=== PATIENT | female | born 1960 | race Two or more races ===

== ENCOUNTER → 2018-05-07 | Day surgery (SDC) | payer BC, OTHER ==
--- NOTE | 2018-05-10 15:23 | PATH ---
Surgical Pathology Report Patient Name: DARCY HUNTLEY [facility]. Rec. #: [id number] /Age/Gender: 1960 (Age: 57) / F Account: [id number] Location: [facility] Taken: 05/07/2018 Received: 05/07/2018 Reported: 05/10/2018 Physicians: Rebecca Red M.D. Specimen(s) Received LEFT BREAST 8:00 13 CM FN CORE BIOPSY Clinical History Ultrasound findings: Suspicious Final Diagnosis BREAST, LEFT, 8:00, 13 FN, CORE BIOPSY: BENIGN BREAST TISSUE SHOWING FIBROADENOMA. Electronically Signed Josselin Bejarano M.D. Gross Description Received in formalin, indicated on the requisition to be left breast 8:00 13 FN, is a 1.8 x 1.7 x 0.3 cm aggregate of multiple dickerson-yellow, irregular to cylindrical portions of fibroadipose tissue admixed with blood clot. The formalin is filtered and the specimen is entirely submitted in one cassette. Time to formalin fixation: 2 minutes Total formalin fixation time: Approximately 6 hours. /05/07/2018 [place]/05/07/2018
== END | disposition home or self-care (01) ==
LOC: FRADUS-SUR 11:25
PROVIDERS: ATTEND Surgery Surgical Oncology
PROC: 0HBU3ZX Excision of Left Breast, Percutaneous Approach, Diagnostic (ICD-10-PCS; principal; 2018-05-07)
DX: D24.2 Benign neoplasm of left breast (principal); N63.24 Unspecified lump in the left breast, lower inner quadrant
CPT/HCPCS: 19083; 77065-TC; 87899; 88305-TC; A4648

== ENCOUNTER 2018-06-15 15:38 | Day surgery (SDC) | payer BC ==
[2018-06-08 11:30] VITALS: BMI 34.7
[~2018-06-15 15:38] MED LIST: ACETAMINOPHEN INJECTION 100 ML IVPB ONE; DESFLURANE GAS 240 ML BOTTLE IH ONE; DEXAMETHASONE SOD PHOSPHATE 4 MG/1 ML VIAL ONE; MIDAZOLAM HCL 2 MG/2 ML SINGLE DOSE VIAL ONE; MORPHINE SULFATE 2 MG/ML VIAL IVPUSH PRN; NEOSTIGMINE METHYLSULFATE 0.5 MG/ML - 10 ML MDV ONE; ONDANSETRON 4 MG/2 ML VIAL IVPB PRN; ONDANSETRON 4 MG/2 ML VIAL IVPUSH PRN; ONDANSETRON 4 MG/2 ML VIAL ONE; PROPOFOL 20 ML ONE; ROCURONIUM BROMIDE 50 MG/5 ML VIAL ONE; ceFAZolin SODIUM 1 GM VIAL ONE; oxyCODONE HCL 5 MG TABLET PO PRN
--- NOTE | 2018-06-15 15:39 | SURG ---
Surgery Painter Maintenance Note Painter Maintenance: Evin Mason PA-C Date of Service: 06/15/18 Diagnosis: symptomatic macromastia Procedure: Bilateral breast reduction I was present for the entirety of the operative procedure. For further detail, please refer to operative report.
--- NOTE | 2018-06-15 15:43 | OP ---
Operative Note - Note: Operative Date: 06/15/18 Pre-Operative Diagnosis: bilateral symptomatic macromastia Operation: bilateral breast reduction Findings: above Post-Operative Diagnosis: Same as Pre-op Surgeon: Shawn Ramsey Anesthesia: General Operative Report Dictated: Yes
[2018-06-15] MEDS ORDERED: LACTATED RINGERS SOLUTION 1,000 ML IV SCH ×2 (15:45)
[2018-06-15] MEDS ORDERED: ONDANSETRON 4 MG/2 ML VIAL IVPUSH ONE (15:45)
--- NOTE | 2018-06-15 16:43 | OP ---
DATE OF OPERATION: 06/15/2018 TITLE OF PROCEDURE: Bilateral reduction mammoplasty. PREOPERATIVE DIAGNOSIS: Bilateral symptomatic micromastia. POSTOPERATIVE DIAGNOSIS: Bilateral symptomatic micromastia. ATTENDING SURGEON: Shawn Ramsey MD INTERIOR PAINTER: Evin Mason PA-C The patient was marked in the holding area, nipples sited at 24 cm from the sternal notch bilaterally. Modified inferior pedicle Lopez pattern technique is planned. Patient is awake and aware of all incisions and resulting scars, brought to the operating room. Sequential compression stockings and HUMZA hose were applied. She is placed in the supine position. Position is carefully checked by surgical and anesthesia team. All pressure points are carefully padded and secured. Patient is then prepped and draped in standard surgical fashion. Herrmann catheter was placed. A timeout is called. Patient, procedure, site, and side were verified. When the markings were verified, the nipples were traced with a 42-mm cookie cutter pattern. Bilateral 10 cm width inferior pedicles were marked. With breast under tourniquet, the inferior pedicles were de-epithelialized with the exception of the nipple-areolar complex. Attention was then directed toward the right breast where skin flaps were elevated superiorly, medially, and laterally down to the level of the chest wall. The pedicle was then separately developed on its base connected to all its perforators along the pectoralis major muscle. This dissection is performed with a plasma blade dissection. Hemostasis was meticulously achieved. The skin was then tailor tacked in position. Attention was directed toward the contralateral side. The resection weight on the right side was exactly 989 g. Sutured specimen was specifically oriented with the suture at 12 o'clock. The mirror imaged procedure was performed on the left side. The resection weight on the left side is 953 g. With the skin tailor tacked on both sides, patient was brought to a seated upright position. Excellent asymmetry of size and shape and position are observed. Hemostasis was meticulously achieved. Both wounds were copiously irrigated with normal saline. A size 10 flat ISAAC drains were brought out the lateral extent of the incisions. Closure was then performed with first a medial tacking suture to the pedicle to the pectoralis fascia supporting the pedicle in a medial position. At this point, drains were secured with 2-0 silk drain sutures. The inverted T-point is secured with half-buried mattress 2-0 nylon suture. Vertical and horizontal limbs are closed with a series of interrupted buried deep dermal 3-0 Monocryl followed by a running subcuticular 3-0 Monocryl suture. The nipple-areola is inset with a series of interrupted buried deep dermal 3-0 Monocryl suture followed by a running subcuticular 4-0 Monocryl suture. All tissue was pink and viable at the end of the procedure. The patient is dressed with Steri-Strips, ABD gauze, and compressive surgical bra. Patient awoken from anesthesia and transferred to recovery without complication. Rebecca [id number]
[2018-06-15] MEDS ORDERED: CEFAZOLIN 1 GM in DEXTROSE 5%-WATER - 50 ML IVPB SCH (21:00)
[2018-06-15] MEDS ORDERED: CEFAZOLIN 1 GM/D5W 50 ML IVPB SCH (21:00)
[2018-06-15] MEDS: oxyCODONE HCL 5 MG TABLET PO PRN (22:27)
[2018-06-15] MEDS: CEFAZOLIN 1 GM/D5W 1 GM/50 ML BAG IVPB SCH (22:27)
[2018-06-16] MEDS: CEFAZOLIN 1 GM/D5W 1 GM/50 ML BAG IVPB SCH ×2 (04:03→09:57)
[2018-06-16 07:06] VITALS: BP 127/57; PULSE 72; TEMP 98.3
--- NOTE | 2018-06-16 07:24 | PN ---
Progress Note (short form) - Note Progress Note: POD 1 s/p reduction VSSAF All tissues viable, no collections. Right ISAAC was clogged and now fixed OK for discharge home.
[2018-06-16] MEDS: oxyCODONE HCL 5 MG TABLET PO PRN (09:57)
[2018-06-16] MEDS ORDERED: AMLODIPINE PO SCH (10:00)
[2018-06-16] MEDS ORDERED: ATORVASTATIN CA 20 MG TABLET (FP) PO SCH (10:00)
[2018-06-16] MEDS ORDERED: amLODIPine BESYLATE 2.5 MG TABLET (FP) PO SCH (10:00)
[2018-06-16] MEDS ORDERED: [UNRECOGNIZED DRUG - OTHER] PO SCH (10:00)
[2018-06-16] MEDS ORDERED: ATORVASTATIN PO SCH (10:00)
--- NOTE | 2018-06-17 17:39 | PATH ---
Surgical Pathology Report Patient Name: DARCY HUNTLEY [facility]. Rec. #: [id number] /Age/Gender: 1960 (Age: 57) / F Account: [id number] Location: [facility] Taken: 06/15/2018 Received: 06/15/2018 Reported: 06/17/2018 Physicians: Shawn Ramsey Specimen(s) Received A: RIGHT BREAST TISSUE, SUTURE AT SUPERIOR APEX B: RIGHT BREAST TISSUE, SUTURE AT 12 O'CLOCK C: RIGHT BREAST TISSUE, SUTURE AT 10 O'CLOCK D: LEFT BREAST TISSUE, SUTURE AT SUPERIOR APEX E: LEFT BREAST TISSUE, SUTURE AT 12 O'CLOCK Clinical History Symptomatic macromastia Final Diagnosis A. RIGHT BREAST TISSUE, EXCISION: BENIGN BREAST TISSUE. SKIN WITH NO PATHOLOGIC FINDINGS. B. RIGHT BREAST TISSUE, EXCISION: BENIGN BREAST TISSUE SHOWING FIBROCYSTIC AND FIBROADENOMATOID CHANGE. C. RIGHT BREAST TISSUE, EXCISION: BENIGN BREAST TISSUE. D. LEFT BREAST TISSUE,EXCISION: BENIGN BREAST TISSUE SHOWING FIBROADENOMATOID CHANGE AND PRIOR BIOPSY SITE CHANGES. E. LEFT BREAST TISSUE, EXCISION: BENIGN BREAST TISSUE SHOWING FIBROCYSTIC CHANGE. Electronically Signed Josselin Bejarano M.D. Gross Description One One A. Received in formalin labeled "right breast tissue," is an 891 g, 33.0 x 15.0 x 4.0 cm portion of fibroadipose tissue a suture marking the superior apex, per the surgeon. The anterior surface displays a 33.0 x 7.0 cm brown, irregular, unremarkable portion of skin. The anterior soft tissue is inked blue and the deep margin is inked black. Sectioning reveals foci of white fibrous tissue. Home Administrator sections are submitted in 3 cassettes. B. Received in formalin labeled "right breast tissue," is a 40 g, 8.8 x 5.8 x 2.0 cm portion of fibroadipose tissue. There is no suture present, despite the indication on the requisition. There is no skin present. Sectioning reveals multiple foci of white fibrous tissue. Home Administrator sections are submitted in 4 cassettes. C. Received in formalin labeled "right breast tissue," is a 10 g, 6.5 x 3.0 x 1.3 cm aggregate of multiple unoriented portions of fibroadipose tissue. There is no suture present, despite the indication on the requisition. There is no skin present. Sectioning reveals foci of white fibrous tissue. Home Administrator sections are submitted in one cassette. D. Received in formalin labeled "left breast tissue," is an 810 g, 37.0 x 11.5 x 3.5 cm portion of fibroadipose tissue with a suture marking the superior apex, per the surgeon. The anterior surface displays a 36.5 x 7.0 cm brown, irregular, unremarkable portion of skin. The anterior soft tissue is inked blue and the deep margin is inked black. Sectioning reveals a 1.0 cm in greatest dimension focus of fibrous tissue associated with hemorrhage and fat necrosis, possibly consistent with a previous biopsy site. The site is at medial aspect of the specimen. The remaining breast parenchyma displays foci of white fibrous tissue. Home Administrator sections are submitted in 6 cassettes with the possible previous biopsy site in cassettes 1-3. E. Received in formalin labeled "left breast tissue," is a 173 g, 10.0 x 10.0 x 3.7 cm portion of fibroadipose tissue. There is no suture present, despite the indication on the requisition. There is no skin present. Sectioning reveals foci of white fibrous tissue. Home Administrator sections are submitted in 2 cassettes. 06/16/2018 [facility]06/16/2018
== END 2018-06-16 12:00 | disposition home or self-care (01) ==
LOC: FASUSAT 15:38 → FM/S 17:17 → FASUSAT 06-16 12:00
PROVIDERS: ATTEND Plastic Surgery
PROC: 0HBV0ZZ Excision of Bilateral Breast, Open Approach (ICD-10-PCS; principal; 2018-06-15 11:44)
DX: N64.82 Hypoplasia of breast (principal)
CPT/HCPCS: 88304-TC; 94760; J0131